=== PATIENT | female | born 1955 | race Caucasian/White ===

== ENCOUNTER → 2017-10-14 | Day surgery (SDC) | payer BC, OTHER ==
[~2017-10-14] MED LIST: Acetaminophen/Codeine 30-300mg Tablet ONE; Bupivacaine/Epinephrine 0.25% 30 ML VIAL ONE; Dexamethasone 20 MG/5 ML VIAL ONE; Dicyclomine 20 MG TAB ONE; Fentanyl 250 MCG/5 ML VIAL ONE; Glycopyrrolate 0.2 MG/ML 5 ML SYRINGE ONE; ISOVUE-370 76%-LOCM 1 ML ONE; Lidocaine 1% PF 5 ML VIAL ONE; Lidocaine Viscous Sol 2% 15 ml UD Cup ONE; Mag-Al 1200 mg/1200 mg/30 ML UDCUP ONE; Midazolam HCl 2 mg/2 ml Vial ONE; Ondansetron HCl/PF 4 MG/2 ML Vial ONE; Ondansetron ODT 4 MG TAB ONE; PHENYLEPHRINE-NS 100 MCG/ML 10 ML SYRINGE ONE; PROPOFOL 200 MG/20 ML VIAL ONE; Pantoprazole 40 MG VIAL ONE; Piperacillin/Tazobactam 4.5 GM VIAL ONE; Promethazine HCl 25 MG/ML VIAL ONE; Sodium Chloride 0.9% 100 ML ONE; Succinylcholine Chloride 20 MG/ML 10 ml SYRINGE FS ONE; cefOXitin 2 GM VIAL ONE; ePHEDrine/0.9% NaCl/PF SYRINGE 50 mg/10 ml ONE
[2017-10-14 07:23] LABS: #Lymphocytes 2.3 thou/uL (1.20-3.40); #Monocytes 1.6 thou/uL (0.11-0.59); #Neutrophils 15.9 thou/uL (1.40-6.50); %Basophils 0.1 % (0.0-1.0); %Eosinophils 0.1 % (0.0-10.0); %Lymphocytes 11.4 % (21.0-51.0); %Monocytes 8.1 % (0.0-10.0); %Neutrophils 80.4 % (42.0-75.0); Hemoglobin 13.7 g/dL (12.0-16.0); Mean Corpuscular HGB CONC 34.1 g/dL (32.0-36.0); Mean Platelet Volume 6.9 fL (7.4-10.4); Platelet Count 326 thou/uL (130-400); RBC Distribution Width 11.6 % (11.5-14.5); Red Blood Cell (RBC) Count 4.56 mill/uL (4.20-5.40); White Blood Cell (WBC) Count 19.8 thou/uL (4.8-10.8)
[2017-10-14 07:46] LABS: ALT (SGPT) 19 U/L (8-55); AST (SGOT) 13 U/L (5-34); Albumin 4.7 g/dL (3.4-4.8); Alkaline Phosphatase 92 U/L (40-150); Anion Gap 16 mmol/L (10-20); BUN (Urea Nitrogen) 20 mg/dL (9.8-20.1); Bilirubin, Total 0.9 mg/dL (0.2-1.2); Calc. Creatinine Clearance 0 mL/min (70-130); Carbon Dioxide 24 mmol/L (23-31); Chloride 101 mmol/L (98-107); Estimated GFR-MDRD 63; Glucose 140 mg/dL (80-115); Potassium 3.5 mmol/L (3.5-5.1); Protein, Total 7.7 g/dL (6.0-8.3); Sodium 137 mmol/L (136-145)
[2017-10-14 08:19] LABS: Bilirubin Negative (Negative); Blood, Urine Trace (Negative); Clarity CLOUDY (Clear); Glucose, Urine (Dipstick) 100 mg/dL (Negative); Leukocyte Small (Negative); Nitrite Negative (Negative); Protein, Urine (Dipstick) Negative (Neg-Trace); Specific Gravity, Urine 1.026 (1.002-1.036); Urobilinogen 0.2 mg/dL (0.2-1.0)
[2017-10-14 08:20] LABS: Bacteria/HPF None Seen HPF (None Seen); Hyaline Casts/LPF 0-3 HYALINE CAST LPF (0-3 Hyaline); Pathc Cast-AUWi Flag 0.14 (0-2.49); Squamous Epithelial 0-3 HPF (0-3)
[2017-10-14 08:22] LABS: Yeast-AUWi Flag 28.4 (0-25.0)
[2017-10-14 08:26] LABS: CKMB 0.4 ng/mL (0-6.6); Troponin I Less than 0.010 ng/mL (< 0.028)
[2017-10-14 08:42] LABS: Transitional Epithelial 0-3 HPF (0-3); Yeast-All Forms None Seen HPF (None Seen)
[2017-10-14 08:43] LABS: Crystals/HPF 2+ CA OXALATE HPF (Negative)
--- NOTE | 2017-10-14 08:55 | RAD ---
FRONTAL RADIOGRAPH CHEST UPRIGHT AND SUPINE IMAGING OF ABDOMEN AND PELVIS: DATE: 10/14/17. COMPARISON: None. HISTORY: Epigastric pain with bloating. FINDINGS: Frontal radiograph chest demonstrates no pneumothorax, pleural fluid, focal consolidation, or alveola r edema. Heart and mediastinal contours are unremarkable. Upright imaging demonstrates no evidence for free intraperitoneal air or small bowel obstruction. Cl ips in right upper quadrant suggest prior cholecystectomy. Suture material is seen within the right and left hemipelvis. There is spina bifida occulta at the L5 level. IMPRESSION: No acute findings. POS: MAVERICK
[2017-10-14 09:58] LABS: PTT 30.3 SEC (22.9-36.1); Prothrombin Time 13.5 SEC (12.0-14.7)
--- NOTE | 2017-10-14 10:14 | CT ---
CT ABDOMEN AND PELVIS PERFORMED WITH CONTRAST ENHANCEMENT: Date: 10/14/17 HISTORY: Abdominal pain and bloating. FINDINGS: The lung bases show linear atelectatic change. A small hiatal hernia is seen. The liver and spleen are within normal limits of size. There is suggestion of some fatty changes of t he liver. The pancreas shows no evidence of mass. Gallbladder has been removed. Right and left adrenal glands, and right and left kidneys are normal in size and appearance. There is no significant periaortic or mesenteric lymphadenopathy. CT of pelvis was performed with contrast enhancement. The patient has undergone a hysterectomy. There is what is probably suture material seen in the region of both parietal ligaments. On the right side , this appears to be partially attached to the apex of the cecum and expected location of the appendi x, but I think this is probably related to the previous hysterectomy. There is an enlarged, inflamed appendix seen, with periappendiceal fat stranding. On these images, the appendix appears to have a so mewhat anomalous connection along the medial wall of the colon, but it may be that it is just adheren t to the wall and difficult to visualize. No abscess or free fluid. IMPRESSION: 1. CT findings compatible with appendicitis as discussed above. 2. Postop hysterectomy change. POS: BEL
--- NOTE | 2017-10-14 12:29 | HP ---
CHIEF COMPLAINT: Right lower quadrant abdominal pain. HISTORY OF PRESENT ILLNESS: Patient is a 62-year-old very pleasant white female. She had onset of l ower abdominal pain about 2:00 yesterday. She notes that the pain has persisted and does not really seem like it is moved much. She denies nausea or vomiting, but notes persistent and progressive pain . She is unaware of any fever. When she presented to the emergency room today, she was evaluated wi th laboratory and radiologic studies. Her white blood cell count was elevated at 20,000. Chemistry panel was unremarkable. Urinalysis showed no definite evidence of a urinary tract infection. CT sca n revealed changes consistent with acute appendicitis. PAST MEDICAL HISTORY: Hypertension, hypercholesterolemia, gastroesophageal reflux disease. PAST SURGICAL HISTORY: 1. Laparoscopic cholecystectomy. 2. Partial hysterectomy. MEDICATIONS: Amlodipine, losartan, atorvastatin, ranitidine. ALLERGIES: To LISINOPRIL. PERSONAL AND SOCIAL HISTORY: She is and is present at bedside. She has one child. She lives in [place] and is retired. She denies tobacco use. She acknowledges rare alcohol use. REVIEW OF SYSTEMS: Otherwise, unremarkable. FAMILY HISTORY: Noncontributory. PHYSICAL EXAMINATION: VITAL SIGNS: She is afebrile. Her pulse is about 100, blood pressure is 140/80. GENERAL: She is a well-developed, well-nourished, pleasant white female resting in bed, in no acute distress. She is alert and oriented x3. HEENT: Unremarkable. NECK: Supple, without mass or tenderness. LUNGS: Clear to auscultation throughout. CARDIAC: Regular rate and rhythm without murmur. ABDOMEN: Soft with normal active bowel sounds. She has focal tenderness in the right lower quadrant with guarding. She has lower abdominal discomfort, but this appears to be secondary to a full bladd er. EXTREMITIES: Unremarkable. ASSESSMENT: Patient with suspected acute appendicitis. This correlates with her physical examinatio n, CT findings and leukocytosis. I have recommended laparoscopic appendectomy. I have discussed the operation in detail with the patient as well as potential risks. She understands and agrees to proc eed with surgery at this time.
--- NOTE | 2017-10-15 14:21 | OP ---
DATE OF OPERATION: 10/14/2017 PREOPERATIVE DIAGNOSIS: Acute appendicitis. POSTOPERATIVE DIAGNOSIS: Acute appendicitis. OPERATION PERFORMED: Laparoscopic appendectomy. SURGEON: Boy Herrera M.D. ANESTHESIA: General endotracheal. INDICATIONS: The patient is a 62-year-old white female. She presents with symptoms and findings con sistent with acute appendicitis. She is taken to the operating room at this time for appendectomy. DESCRIPTION OF OPERATION: Informed consent was obtained. The patient was taken to the Operating Jes m where general endotracheal anesthesia was obtained with the patient in the supine position. Local anesthetic was infiltrated into the intended incision sites, and 5-mm infraumbilical incision was cre ated. Veress needle was passed into the peritoneal cavity. Pneumoperitoneum was established using c arbon dioxide up to a pressure of 15 mmHg. A 5-mm trocar port was passed through the same incision. Laparoscopic camera was passed through this port. Under direct vision, two additional ports were pl aced including a 5-mm right subcostal port and a 10/12-mm suprapubic port. Attention was then turned to the right lower quadrant. After mobilization of bowel, there was obvious evidence of acute appen dicitis. The appendix was gently mobilized away from the surrounding structures, and the mesoappendi x was grasped. It was divided with the tripolar cautery so as to skeletonize the base of the appendi x. The appendix was then divided with the Endo DANIEL stapler to include a small cuff of cecum. Staple lines were intact. The appendix was placed into a laparoscopic pouch and retrieved through the supr apubic port. The fascia at this port was approximated with 0 Vicryl suture and the Granee needle. P ort was replaced, and the right lower quadrant was inspected. Hemostasis was found to be intact, and the area was irrigated. Staple line was also noted to be intact. All ports and instruments were re moved under direct vision. Pneumoperitoneum was carefully evacuated. 0.25% Marcaine with epinephrin e was infiltrated into each port site. Skin edges were approximated with 4-0 Prolene subcuticular valderrama ture as well as Steri-Strips and Mastisol. Band-aid dressings were applied. There were no complicat ions. The patient tolerated the procedure well and was taken to Recovery in stable condition. FINDINGS: The patient's appendix was very obviously inflamed and indurated consistent with obvious a cute appendicitis. I was able to skeletonize the base of the appendix, which was not significantly d ilated. There were no complications. Blood loss was negligible. The patient tolerated the procedur e well.
== END ==
LOC: ERS 07:03
PROVIDERS: ATTEND Specialist
PROC: 0DTJ4ZZ Resection of Appendix, Percutaneous Endoscopic Approach (ICD-10-PCS; principal; 2017-10-14)
DX: K35.3 Acute appendicitis with localized peritonitis (principal); I10 Essential (primary) hypertension; E78.00 Pure hypercholesterolemia, unspecified; K21.9 Gastro-esophageal reflux disease without esophagitis; Z88.8 Allergy status to other drugs, medicaments and biological substances
CPT/HCPCS: 36415; 74022; 74177; 80053; 81003; 81015; 82553; 83605; 83690; 84484; 85025; 85610; 85730; 86850; 86900; 86901; 88304; 93005; 96361; 96365; 96375; C9113; J0694; J1100; J2001; J2250; J2405; J2543; J2550; J2704; J3010; J7050; Q0162